=== PATIENT | female | born 1970 | race Caucasian/White ===

== ENCOUNTER 2023-09-11 06:47 | Day surgery (SDC) | payer OTHER ==
[~2023-09-11] VITALS: Ht 175.3 cm; Wt 112.5 kg
[~2023-09-11 06:47] MED LIST: Lactated Ringer's 1,000 ML IV ONE
[2023-09-11] MEDS ORDERED: EPINEPhrine HCl 1 MG/ML 1ML Amp ONE ×2 (07:03→07:25)
[2023-09-11] MEDS ORDERED: propofoL 20 ML IV ONE (07:24)
[2023-09-11] MEDS ORDERED: Dexamethasone Sod Phos 10 MG/ML 1ML VIAL ONE (07:25)
[2023-09-11] MEDS ORDERED: Ondansetron HCl 2 MG / ML 2ML Vial ONE (07:25)
[2023-09-11] MEDS ORDERED: FentaNYL Citrate 50 MCG/ML 2 ML Injection ONE ×2 (07:25→10:26)
[2023-09-11] MEDS ORDERED: Sugammadex Sodium 200 MG/2ML SDV (100 MG/ML) ONE (07:25)
[2023-09-11] MEDS ORDERED: Midazolam HCl 1MG / ML 2ML Vial ONE (07:25)
[2023-09-11] MEDS ORDERED: Rocuronium Bromide 10 MG/ML 5ML Injection IV ONE ×2 (07:25→08:58)
[2023-09-11] MEDS ORDERED: Bupivacaine 0.5% HCl 5 MG/ML 30MLVIAL ONE (07:26)
[2023-09-11] MEDS ORDERED: Ketorolac Tromethamine 30mg Vial ONE (07:26)
[2023-09-11] MEDS ORDERED: CefTRIAXone Sodium 2,000 MG in NS 100 ML IV SCH (07:35)
[2023-09-11] MEDS ORDERED: Methocarbamol500 MG (07:47)
[2023-09-11] MEDS ORDERED: LORA10ER (07:47)
[2023-09-11] MEDS ORDERED: Lactated Ringer's 1,000 ML IV ONE (07:55)
[2023-09-11] MEDS ORDERED: Ropivacaine 0.5% HCl/Pf 5 MG/ML 20ML VIAL INJ ONE (09:18)
--- NOTE | 2023-09-11 09:28 | NUR ---
09/11/23 0928 Leonela Whitman 1 MG EPI ADDED TO THE FIRST BAG OF LR FOR IRRIGATION AT [facility]. ROPIVACAINE 0.5% 10 ML MIXED & VERIFIED W/ EPI 0.05 ML TO MAKE ROPIVACAINE 0.5% 1:200,000 FOR INJECTION AT [facility] BY DR. SANTOS.
[2023-09-11 11:21] VITALS: BP 122/75
[2023-09-11] MEDS ORDERED: OxyCODONE 5 mg/Acetamin 325 mg TABLET ONE (11:40)
--- NOTE | 2023-09-11 12:04 | NUR ---
09/11/23 1204 Jean Paul Montez 5/325 ONE TAB PO GIVEN AT 1145 FOR PAIN AT 2/10 O LEFT SHOULDER. INSTRUCTED ON USE OF POLAR PACK AND INSPIROMETER. PT STATES HER DISCOMFORT IS TOLERABLE. TOLERATING FOOD AND FLUIDS. PT MOTHER PATY PRESENT TO ASSIST
== END 2023-09-11 12:31 | disposition home or self-care (01) ==
LOC: ORSCSDS 06:47
PROVIDERS: Orthopaedic Surgery
PROC: 0RNK4ZZ Release Left Shoulder Joint, Percutaneous Endoscopic Approach (ICD-10-PCS; principal; 2023-09-11 08:15)
PROC: 0LM24ZZ Reattachment of Left Shoulder Tendon, Percutaneous Endoscopic Approach (ICD-10-PCS; principal; 2023-09-11 08:15)
DX: M75.122 Complete rotator cuff tear or rupture of left shoulder, not specified as traumatic (principal); W01.0XXA Fall on same level from slipping, tripping and stumbling without subsequent striking against object, initial encounter; J44.9 Chronic obstructive pulmonary disease, unspecified; Z87.891 Personal history of nicotine dependence; E03.9 Hypothyroidism, unspecified; F41.9 Anxiety disorder, unspecified; F32.A Depression, unspecified; Z79.899 Other long term (current) drug therapy
CPT/HCPCS: A9270; C1713; J0171; J0696; J1100; J1885; J2250; J2405; J2704; J2795; J3010; J7120

== ENCOUNTER 2024-09-30 06:10 | Emergency (ER) | payer OTHER ==
[~2024-09-30] VITALS: Ht 175.3 cm; Wt 117.9 kg
[~2024-09-30 06:10] MED LIST changes: +LORA10ER; -Lactated Ringer's 1,000 ML IV ONE; +Methocarbamol500 MG
[2024-09-30 06:43] LABS: BASOPHILS ABSOLUTE AUTO 0.05 K/mm3 (0.00-0.23); BASOPHILS PERCENT AUTO 1 % (0-2); EOSINOPHILS ABSOLUTE AUTO 0.16 K/mm3 (0.00-0.68); EOSINOPHILS PERCENT AUTO 2 % (0-6); Hematocrit 42.9 % (33.0-51.0); Hemoglobin 14.1 g/dL (11.5-16.0); IMMATURE GRAN ABSOLUTE AUTO 0.03 K/mm3 (0.00-0.10); IMMATURE GRAN PERCENT AUTO 0 % (0-1); LYMPHOCYTES ABSOLUTE AUTO 3.37 K/mm3 (0.84-5.20); LYMPHOCYTES PERCENT AUTO 41 % (21-46); MONOCYTES ABSOLUTE AUTO 0.57 K/mm3 (0.16-1.47); MONOCYTES PERCENT AUTO 7 % (4-13); Mean Corpuscular HGB 30.5 pg (26.0-34.0); Mean Corpuscular HGB Conc 32.9 g/dL (31.5-36.5); Mean Corpuscular Volume 93 fL (80-100); Mean Platelet Volume 9.7 fL (9.1-12.4); NEUTROPHILS ABSOLUTE AUTO 4.14 K/mm3 (1.96-9.15); NEUTROPHILS PERCENT AUTO 50 % (41-73); Platelet Count 256 K/mm3 (150-400); RDW Coefficient Variation 12.3 % (11.7-14.2); RDW Standard Deviation 42.1 fL (35.1-46.3); Red Blood Cell Count 4.63 M/mm3 (3.80-5.20); White Blood Cell Count 8.32 K/mm3 (4.00-11.30)
[2024-09-30 07:06] LABS: Albumin, Blood 4.3 g/dL (3.4-5.0); Albumin/Globulin Ratio 1.3 (0.8-1.8); Bilirubin, Total 0.2 mg/dL (0.1-1.0); Bun/Creatinine Ratio 28.4 (12.0-20.0); Calcium, Blood 9.4 mg/dL (8.5-10.1); Creatinine, Blood 0.67 mg/dL (0.40-1.00); Globulin, Blood 3.2 g/dL (2.2-4.0); Potassium, Blood 3.8 mmol/L (3.5-5.5); Total Protein, Blood 7.5 g/dL (6.4-8.2)
[2024-09-30] MEDS ORDERED: Ipratropium/Albuterol SulF 2.5-0.5MG/3 ML Amp INH ONE (08:10)
[2024-09-30] MEDS ORDERED: Acetaminophen 500 MG Tab PO ONE (08:15)
[2024-09-30] MEDS ORDERED: Albuterol 2.5 MG/3 ML VIAL INH SCH (08:15)
[2024-09-30] MEDS ORDERED: PredniSONE 20 MG Tab PO ONE (08:15)
[2024-09-30] MEDS ORDERED: Azithromycin 250 MG Tab PO ONE (10:20)
[2024-09-30] MEDS ORDERED: PRED20 PO (10:22)
[2024-09-30] MEDS ORDERED: AZIT250 PO (10:22)
[2024-09-30] MEDS ORDERED: ALBU90OI INH (10:22)
[2024-09-30 10:40] VITALS: BP 139/81
== END 2024-09-30 11:50 | disposition home or self-care (01) ==
LOC: ER 06:10
PROVIDERS: Student in an Organized Health Care Education/Training Program
DX: J44.1 Chronic obstructive pulmonary disease with (acute) exacerbation (principal); R07.89 Other chest pain; I10 Essential (primary) hypertension; F17.210 Nicotine dependence, cigarettes, uncomplicated; Z79.899 Other long term (current) drug therapy
CPT/HCPCS: 71046; 80053; 84484; 85025; 93005; 93010; 94640; 94644; 94664; 99285-25; A9270; J7512